=== PATIENT | female | born 1990 | race Caucasian/White ===

== ENCOUNTER 2023-07-14 09:36 | Emergency (ER) | payer OTHER ==
[~2023-07-14] VITALS: Ht 157.5 cm; Wt 77.3 kg
[2023-07-14 09:41] VITALS: BP 118/67; PULSE 84; RESP 18; TEMP 98.3; O2SAT 100
[2023-07-14] MEDS ORDERED: NAPR-56 PO (11:10)
== END 2023-07-14 11:19 | disposition home or self-care (01) ==
LOC: ER 09:37
DX: S93.401A Sprain of unspecified ligament of right ankle, initial encounter (principal); X58.XXXA Exposure to other specified factors, initial encounter; Y93.89 Activity, other specified; Y92.89 Other specified places as the place of occurrence of the external cause; Y99.8 Other external cause status
CPT/HCPCS: 73610; 99283; L1930